=== PATIENT | female | born 1980 | race Two or more races ===

== ENCOUNTER 2021-12-26 12:54 | Outpatient (CLI) | payer OTHER | END 2021-12-26 13:00 | disposition home or self-care (01) | LOC: RAD 12:54 | PROVIDERS: ATTEND Surgery | DX: K59.00 Constipation, unspecified (principal) ==

== ENCOUNTER 2023-08-17 07:10 | Day surgery (SDC) | payer OTHER ==
[~2023-08-17] VITALS: Ht 149.9 cm; Wt 49.4 kg
[2023-08-17] MEDS ORDERED: METRONIDAZOLE/SODIUM CHLORIDE 500 MG/100 ML PIGGYBACK IV ONE ×2 (08:35→14:00)
[2023-08-17] MEDS ORDERED: CEFTRIAXONE SODIUM 2,000 MG VIAL ONE (08:36)
[2023-08-17] MEDS ORDERED: OXYC1TAB9 PO (09:23)
[2023-08-17] MEDS ORDERED: POVIDONE-IODINE 118 ML BOTT TOP ONE ×2 (12:57→14:00)
[2023-08-17] MEDS ORDERED: HEMOSTATIC MATRIX 1 KIT KIT TOP ONE ×2 (12:57→14:00)
[2023-08-17] MEDS ORDERED: DIBUCAINE 30 GM TUBE ONE (12:57)
[2023-08-17] MEDS ORDERED: CEFTRIAXONE SODIUM 2,000 MG VIAL IV ONE (14:00)
[2023-08-17] MEDS ORDERED: BUPIVACAINE HCL 250MG/50ML VIAL IJ ONE (14:00)
[2023-08-17] MEDS ORDERED: LIDOCAINE HCL 1%/Epi 20ML VIAL IJ ONE (14:00)
[2023-08-17] MEDS ORDERED: DIBUCAINE 15 GM OINT..GM. TUBE RECTAL ONE (14:00)
[2023-08-17] MEDS ORDERED: TAMSULOSIN HCL 0.4 MG CAP PO ONE (15:00)
[2023-08-17] MEDS ORDERED: ONDANSETRON HCL 2 MG/ML VIAL ONE (15:27)
== END 2023-08-17 19:30 | disposition home or self-care (01) ==
LOC: CIR.AMB 07:10
PROVIDERS: ATTEND Surgery
DX: K64.2 Third degree hemorrhoids (principal); K64.4 Residual hemorrhoidal skin tags; K64.8 Other hemorrhoids

== ENCOUNTER 2023-08-29 18:43 | Inpatient (IN) | payer OTHER ==
[~2023-08-29] VITALS: Ht 149.9 cm; Wt 49.4 kg
[~2023-08-29 18:43] MED LIST: OXYC1TAB9 PO
[2023-08-29] MEDS ORDERED: KETOROLAC TROMETHAMINE 30 MG VIAL IV ONE (19:30)
[2023-08-29] MEDS ORDERED: 0.9 % SODIUM CHLORIDE 1,000 ML IV SCH ×2 (19:30→23:00)
[2023-08-29 20:03] LABS: HEMATOCRIT 33.6 % (36.0-45.00); HEMOGLOBIN 11.9 g/dL (12.0-15.00); MEAN CELL VOLUME 86.8 fL (80.00-100.00); MEAN CORPUSCULAR HEMOGLOBIN 30.7 pg (27.00-32.0); MEAN CORPUSCULAR HGB CONC 35.4 g/dl (32.0-36.0); PLATELET COUNT 342 K/uL (150-450); RED BLOOD COUNT 3.88 M/uL (4.00-6.00); RED CELL DISTRIBUTION WIDTH 13.3 % (11.5-14.5)
[2023-08-29 20:44] LABS: ALBUMIN 3.6 gm/dL (3.4-5.0); BILIRUBIN TOTAL 0.65 mg/dL (0.3-1.2); CALCIUM 9.1 mg/dL (8.5-10.1); CREATININE SERUM 0.49 mg/dL (0.55-1.02); GFR 139.17; GLOBULINA 3.8 G/DL (2.4-3.5); POTASSIUM 3.28 mEq/L (3.5-5.1); TOTAL PROTEIN 7.4 gm/dL (6.4-8.2)
[2023-08-29] MEDS ORDERED: MAGNESIUM HYDROXIDE 30 ML BLIST.PACK PO ONE (21:30)
[2023-08-29] MEDS ORDERED: MINERAL OIL 30 ML BLIST.PACK PO ONE (21:30)
[2023-08-29] MEDS ORDERED: KETOROLAC TROMETHAMINE 30 MG VIAL IV PRN (21:30)
[2023-08-29] MEDS ORDERED: LACTULOSE 20 G/30 ML BLIST.PACK PO ONE (21:30)
[2023-08-29] MEDS ORDERED: LORazepam 1 MG TABLET PO ONE (22:00)
[2023-08-29] MEDS ORDERED: LORazepam 2 MG/ML VIAL IM ONE (22:00)
[2023-08-29] MEDS ORDERED: ONDANSETRON HCL 4 MG in 0.9 % SODIUM CHLORIDE 50 ML IV PRN (23:00)
[2023-08-30] MEDS ORDERED: PIPERACILLIN/TAZOBACTAM SODIUM 3.375 GM in DEXTROSE 5 % IN WATER 100 ML IV SCH
[2023-08-30 01:04] LABS: INR 1.05; PARTIAL THROMBOPLASTIN TIME 27.5 SECONDS (22.0-34.0)
[2023-08-30] MEDS ORDERED: [UNRECOGNIZED DRUG - OTHER] TOP ONE (07:15)
[2023-08-30 08:31] LABS: PH,URINE 5.5 (5.0-8.0); URINE APPEARANCE Clear; URINE BILIRRUBIN Negative (NEGATIVE); URINE BLOOD Negative; URINE COLOR Yellow; URINE GLUCOSE Negative (NEGATIVE); URINE LEUKOCYTE Negative; URINE NITRATE Negative; URINE PROTEIN Trace (NEGATIVE)
[2023-08-30 08:35] LABS: URINE BACTERIA 4627.6 uL (0.0-1933); URINE EPITHELIAL CELLS 112.2 uL (0.0-38.8); URINE RBC 9.3 uL (0.0-20.8); URINE WBC 3.2 uL (0.0-23.2)
[2023-08-30] MEDS ORDERED: FAMOTIDINE/PF 20 MG in 0.9 % SODIUM CHLORIDE 8 ML IV PUSH SCH (09:00)
[2023-08-30] MEDS ORDERED: MINERAL OIL 30 ML BLIST.PACK PO SCH (09:00)
[2023-08-30] MEDS ORDERED: MAGNESIUM HYDROXIDE 30 ML BLIST.PACK PO SCH (09:00)
[2023-08-30] MEDS ORDERED: POLYETHYLENE GLYCOL 3350 17 GM BLIST.PACK PO SCH (09:00)
[2023-08-30 10:35] LABS: URINE CRYSTALS MODERATE /HPF
[2023-08-30] MEDS ORDERED: NA PHOS,M-B/NA PHOS,DI-BA 1 BOTTLE ENEMA RECTAL ONE (12:15)
[2023-08-30] MEDS ORDERED: MORPHINE SULFATE 4 MG/ML CARTRIDGE IV PRN (12:15)
[2023-08-30] MEDS ORDERED: BISACODYL 5 MG TABLET.EC PO SCH (12:16)
[2023-08-30] MEDS ORDERED: GLYCERIN 2.1 GM SUPP.RECT RECTAL SCH ×2 (12:16→17:00)
[2023-08-30] MEDS ORDERED: POTASSIUM CHLORIDE IN WATER 100 ML IV ONE (12:45)
[2023-08-30 15:30] LABS: CALCIUM 8.6 mg/dL (8.5-10.1); CHOL HDL RATIO 3.3 (0-5.0); CREATININE SERUM 0.5 mg/dL (0.55-1.02); GFR 135.96; POTASSIUM 3.26 mEq/L (3.5-5.1)
[2023-08-30] MEDS ORDERED: AA 4.25%/CAL/LYTES/DEXT 5% 1,000 ML PERIFERAL SCH (17:00)
[2023-08-30 21:20] LABS: URINE APPEARANCE Clear; URINE BILIRRUBIN Negative (NEGATIVE); URINE BLOOD Large; URINE COLOR Yellow; URINE GLUCOSE Negative (NEGATIVE); URINE LEUKOCYTE Negative; URINE NITRATE Negative; URINE PROTEIN Negative (NEGATIVE); URINE UROBILINOGEN 0.2 E.U./dl
[2023-08-30 21:21] LABS: URINE BACTERIA 992.7 uL (0.0-1933); URINE EPITHELIAL CELLS 69.9 uL (0.0-38.8); URINE RBC 5.4 uL (0.0-20.8); URINE WBC 13.2 uL (0.0-23.2)
[2023-08-31 06:27] LABS: HEMATOCRIT 25.5 % (36.0-45.00); MEAN CELL VOLUME 86.9 fL (80.00-100.00); MEAN CORPUSCULAR HGB CONC 35.6 g/dl (32.0-36.0); PLATELET COUNT 276 K/uL (150-450); RED BLOOD COUNT 2.94 M/uL (4.00-6.00); RED CELL DISTRIBUTION WIDTH 13.1 % (11.5-14.5)
[2023-08-31 06:35] LABS: MEAN CORPUSCULAR HEMOGLOBIN 30.9 pg (27.00-32.0)
[2023-08-31 06:36] LABS: HEMOGLOBIN 9.1 g/dL (12.0-15.00)
[2023-08-31] MEDS ORDERED: FAMOTIDINE/PF 20 MG/2 ML VIAL ONE (07:56)
[2023-08-31] MEDS ORDERED: INTESTINEX680 M1 PO (14:49)
[2023-08-31] MEDS ORDERED: LACTOBACILLUS ACIDOPHILUS 1 CAP CAP PO SCH (17:00)
== END 2023-08-31 16:08 | disposition home or self-care (01) | DRG 390 ==
LOC: ER 18:44 → SURH 23:03
PROVIDERS: General Practice; Internal Medicine Infectious Disease; ADMIT Surgery; ATTEND Surgery
PROC: BW21ZZZ Computerized Tomography (CT Scan) of Abdomen and Pelvis (ICD-10-PCS; principal; 2023-08-29)
DX: K56.41 Fecal impaction (principal); K52.89 Other specified noninfective gastroenteritis and colitis